=== PATIENT | male | born 1980 | race Asian ===

== ENCOUNTER 2017-04-16 11:32 | Emergency (ER) | payer OTHER ==
[~2017-04-16] VITALS: Wt 65.0 kg
--- NOTE | 2017-04-16 11:52 | ERD ---
ER Documentation Chief Complaint Date/Time DATE: 04/16/17 TIME: 11:47 Chief Complaint ANXIETY, EMOTIONAL STRESS HPI 36 yo male presents with anxiety symptoms, relating to work to personal life on and off for 5 years now. 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 He states he tries to travel, hike, and states he was in a long distance relationship and it became difficult to handle. He denies suicidal ideations at this time. ROS All systems reviewed and are negative except as per history of present illness. Medications Home Meds Active Scripts Lorazepam* (Ativan*) 0.5 Mg Tablet, 0.5 MG PO Q8, #10 TAB Prov:VINICIUS ANTHONY PA-C 04/16/17 Allergies Allergies: Coded Allergies: No Known Allergy (Unverified , 04/16/17) PMhx/Soc Medical and Surgical Hx: pt denies Medical Hx, pt denies Surgical Hx Hx Psychiatric Problems: Yes (ANXIETY) Hx Alcohol Use: Yes (OCCASIONALLY) Hx Substance Use: No Hx Tobacco Use: No Smoking Status: Never smoker Physical Exam Vitals Vital Signs Date Time Temp Pulse Resp B/P Pulse Ox O2 Delivery O2 Flow Rate FiO2 04/16/17 11:34 98.8 73 17 145/86 100 Physical Exam Const: anxious, mildly flat affect Head: Atraumatic Eyes: Normal Conjunctiva ENT: Normal External Ears, Nose and Mouth. Neck: Full range of motion..~ No meningismus. Resp: Clear to auscultation bilaterally Cardio: Regular rate and rhythm, no murmurs Abd: Soft, non tender, non distended. Normal bowel sounds Skin: No petechiae or rashes Back: No midline or flank tenderness Ext: No cyanosis, or edema Neur: Awake and alert Results 24 hrs Current Medications Medications (Trade) Dose Ordered Sig/Bharat Route PRN Reason Start Time Stop Time Status Last Admin Dose Admin Lorazepam (Ativan) 1 mg ONCE ONCE PO 04/16/17 12:00 04/16/17 12:01 DC 04/16/17 12:05 Procedures/MDM Medical decision makin yo male comes in with acute anxiety, ongoing for several years, approximately 5 years. Patient was treated with Ativan in the emergency department, and states that he is feeling much better at this time. He is not present with acute psychosis, or is any danger to others or himself. He does not warrant any emergent psychiatric evaluation. He has a follow-up appointment with a psychiatrist in 2 weeks, he was given a short course of Ativan to be taken as needed. Departure Diagnosis: Primary Impression: Anxiety Condition: Good VINICIUS ANTHONY PA-C Apr 16, 2017 11:52
[2017-04-16] MEDS ORDERED: LORA-441 PO (11:55)
[2017-04-16] MEDS ORDERED: LORAZEPAM 1 MG TAB PO ONE (12:00)
== END 2017-04-16 13:56 | disposition home or self-care (01) ==
LOC: FTE 11:32
DX: F41.9 Anxiety disorder, unspecified (principal)
CPT/HCPCS: 99283